=== PATIENT | male | born 2000 | race Hispanic/Latino ===

== ENCOUNTER 2020-04-26 14:10 | Emergency (ER) | payer SELFPAY ==
[~2020-04-26 14:10] MED LIST: Iopamidol-370 76% 500 ML 1 ML ONE
[2020-04-26 14:57] LABS: Hemoglobin 13.3 g/dL (14.0-18.0); Mean Corpuscular HGB CONC 35.5 g/dL (32.0-36.0); Mean Corpuscular Hemoglobin 32.5 pg (25.0-35.0); Mean Corpuscular Volume 91.4 fL (78.0-98.0); RBC Distribution Width 11.3 % (11.5-14.5); Red Blood Cell (RBC) Count 4.11 mill/uL (4.00-5.20); White Blood Cell (WBC) Count 13.3 thou/uL (4.8-10.8)
[2020-04-26 15:11] LABS: ALT (SGPT) 62 U/L (8-55); AST (SGOT) 61 U/L (5-34); Albumin 3.2 g/dL (3.5-5.0); Alkaline Phosphatase 74 U/L (50-130); Anion Gap 17 mmol/L (10-20); BUN (Urea Nitrogen) 21 mg/dL (8.9-20.6); Calc. Creatinine Clearance 0 mL/min (70-130); Calcium 8.5 mg/dL (7.8-10.44); Carbon Dioxide 23 mmol/L (22-29); Chloride 96 mmol/L (98-107); Globulin 3.9 g/dL (2.4-3.5); Glucose 123 mg/dL (70-105); Lipase 13 U/L (8-78); Potassium 3.6 mmol/L (3.5-5.1); Protein, Total 7.1 g/dL (6.0-8.3); Sodium 132 mmol/L (136-145)
[2020-04-26 15:16] LABS: Band 64 % (5-11); Lymphocytes 8 % (28-48); MDiff Complete? YES; Mean Platelet Volume 10.2 fL (7.4-10.4); Monocytes 4 % (0-4); Neutrophil 20 % (31-61); Platelet Count 116 thou/uL (130-400); Platelet Morphology Comment Appears Decreased; Polychromasia SLIGHT = 2-3 cells (100X) (0-2/hpf); Reactive Lymphocytes 3 % (0-10); Reflex for Review?? YES
[2020-04-26] MEDS ORDERED: Ondansetron PF 4 MG/2 ML Vial ONE (15:20)
[2020-04-26 15:46] LABS: Bilirubin Negative (Negative); Blood, Urine 2+ (Negative); Clarity Clear (Clear); Glucose, Urine (Dipstick) Normal (Negative); Ketone, Urine Negative (Negative); Leukocyte Negative Leu/uL (Negative); Nitrite Negative (Negative); Protein, Urine (Dipstick) 200 mg/dL (Neg-Trace); RBC/HPF 0-3 HPF (0-3); Specific Gravity, Urine 1.036 (1.002-1.036); Squamous Epithelial 0-3 HPF (0-3); Urobilinogen Normal mg/dL (Less than 2); pH, Urine 6.5 (5.0-9.0)
[2020-04-26 15:49] LABS: Bacteria/HPF 1+ HPF (None Seen)
--- NOTE | 2020-04-26 16:47 | RAD ---
Exam: Chest one view HISTORY:Hypotension. Positive COVID 19. Comparison: None FINDINGS: Cardiac silhouette: Normal Aorta: Unremarkable Pulmonary vessels: Normal Costophrenic angles: Clear LUNGS: No masses or consolidation. Pneumothorax: None Osseous abnormalities: None IMPRESSION: No acute cardiopulmonary process.
--- NOTE | 2020-04-26 17:23 | CT ---
EXAM: Abdomen and pelvic CT scan with contrast: HISTORY: Hypotension, sore throat, diarrhea, nausea and vomiting COMPARISON: None FINDINGS: Lungs:No significant acute process. Liver: Minimally enlarged with heterogeneous attenuation throughout. There is minimal periportal rui a as well as some edematous changes around the gallbladder without gallbladder wall thickening or gallstone. Gallbladder:No evidence of gallstones. Common bile duct:Normal Pancreas:Unremarkable Spleen:Unremarkable. Adrenal glands:Unremarkable. Kidneys:No renal calculus or acute obstruction. No solid or cystic renal mass. Some of the small bowel loops appear to be borderline in size and shows some wall thickening, nonspec ific possibly nonspecific ileus or enteritis but no evidence for obstruction. Aorta:No evidence for aneurysm. Spine:No significant acute process. No CT evidence for acute appendicitis., A normal appendix is not demonstrated. There are some minimally enlarged right mesenteric lymph nodes up to 1.5 cm short axis raising the po ssibility of some associated mesenteric adenitis. The urinary bladder is unremarkable. Reproductive system:Unremarkable as visualized. Hernias:None No abscess or abnormal fluid collection. IMPRESSION: Borderline size liver with very heterogeneous attenuation with evidence for some periportal edema and some edema around the gallbladder without evidence for gallstones or overt wall thickening. Borderline size spleen. Evidence for some minimally enlarged lymph nodes in the right lower quadrant mesentery, this can be s een in association with mesenteric adenitis. Minimal nonspecific bowel wall thickening within the small bowel without evidence for obstruction pos sibly nonspecific enteritis.
== END 2020-04-26 18:08 | disposition home or self-care (01) ==
LOC: ERS 14:10
DX: B27.90 Infectious mononucleosis, unspecified without complication (principal); E86.0 Dehydration; I88.0 Nonspecific mesenteric lymphadenitis; F17.220 Nicotine dependence, chewing tobacco, uncomplicated
CPT/HCPCS: 71045; 74177; 80053; 81003; 81015; 83605; 83690; 85025; 85060; 87040; 93005; 96374; J2405; Q9967

== ENCOUNTER 2020-04-27 19:00 | Emergency (ER) | payer BC, SELFPAY ==
[2020-04-27 20:47] LABS: Red Blood Cell (RBC) Count 3.48 mill/uL (4.00-5.20)
[2020-04-27 20:48] LABS: #Eosinphils 0.1 thou/uL (0.0-0.7); #Lymphocytes 0.9 thou/uL (1.20-3.40); #Monocytes 0.2 thou/uL (0.11-0.59); #Neutrophils 7.6 thou/uL (1.40-6.50); %Basophils 0.1 % (0.0-1.0); %Eosinophils 1.6 % (0.0-10.0); %Lymphocytes 10.5 % (28.0-48.0); %Monocytes 2.7 % (0.0-4.0); %Neutrophils 85.1 % (31.0-61.0); Hemoglobin 11.5 g/dL (14.0-18.0); Mean Corpuscular HGB CONC 35.9 g/dL (32.0-36.0); Mean Corpuscular Volume 92.1 fL (78.0-98.0); Mean Platelet Volume 9.4 fL (7.4-10.4); Platelet Count 149 thou/uL (130-400); RBC Distribution Width 11.5 % (11.5-14.5)
[2020-04-27] MEDS ORDERED: Acetaminophen 500 MG TAB ONE (21:22)
[2020-04-27 21:34] LABS: ALT (SGPT) 65 U/L (8-55); AST (SGOT) 75 U/L (5-34); Albumin 2.9 g/dL (3.5-5.0); Alkaline Phosphatase 82 U/L (50-130); Anion Gap 14 mmol/L (10-20); BUN (Urea Nitrogen) 17 mg/dL (8.9-20.6); Bilirubin, Total 0.6 mg/dL (0.2-1.2); Calc. Creatinine Clearance 0 mL/min (70-130); Calcium 7.9 mg/dL (7.8-10.44); Carbon Dioxide 25 mmol/L (22-29); Chloride 102 mmol/L (98-107); Globulin 3.3 g/dL (2.4-3.5); Glucose 105 mg/dL (70-105); Potassium 3.6 mmol/L (3.5-5.1); Protein, Total 6.2 g/dL (6.0-8.3); Sodium 137 mmol/L (136-145)
--- NOTE | 2020-04-27 21:52 | RAD ---
XR Chest 1 View Portable History: Hypertension Comparison: Radiograph prior day Findings: Mild atelectasis left lung base. No confluent airspace consolidation, pneumothorax or effus ion. Impression: Mild left basilar atelectasis.
[2020-04-27] MEDS ORDERED: Ketorolac Tromethamine 30 MG/ML VIAL ONE (21:54)
--- NOTE | 2020-04-28 00:10 | CT ---
CTA Angio Chest W WO Con History: Shortness of breath Comparison: Radiograph chest same day Findings: CT angiogram chest performed after the intravenous ministration of contrast. 3-D rendering provided. Although limited due to the delayed phase of contrast, no proximal segmental pulmonary arterial filling defect. Small right pleural effusion. Subtle increased peripheral interstitial lilliam ngs along with mild bibasilar atelectasis. There are also a few groundglass opacities suggesting early pulmonary edema. Spleen is enlarged. Periportal edema is present. Impression: 1. No pulmonary embolism. 2. Mild pulmonary edema in the lower lobes with both interstitial and alveolar components can be seen with acute viral hepatitis and loss of normal hepatic function. 3. Small right layering pleural effusion.
[2020-04-28 00:12] LABS: Bilirubin Negative (Negative); Blood, Urine Negative (Negative); Clarity Clear (Clear); Glucose, Urine (Dipstick) Normal (Negative); Ketone, Urine Negative (Negative); Leukocyte Negative Leu/uL (Negative); Nitrite Negative (Negative); Protein, Urine (Dipstick) 20 mg/dL (Neg-Trace); Specific Gravity, Urine 1.027 (1.002-1.036); Urobilinogen Normal mg/dL (Less than 2)
== END 2020-04-28 02:12 | disposition home or self-care (01) ==
LOC: ERS 19:00
DX: B27.90 Infectious mononucleosis, unspecified without complication (principal); E86.0 Dehydration; B34.9 Viral infection, unspecified; F17.220 Nicotine dependence, chewing tobacco, uncomplicated
CPT/HCPCS: 36415; 71045; 71275; 80053; 81003; 82248; 83605; 85025; 87040; 93005; 96374; J1885; Q9967